=== PATIENT | female | born 1945 | race Caucasian/White ===

== ENCOUNTER → 2018-02-18 | Outpatient (CLI) | payer MEDICARE ==
[~2018-02-18] MED LIST: AMLO2.5T2 PO; CITA10TA8 PO; LORA0.5T PO; OXYB5TAB33 PO; SALM50DI IH
--- NOTE | 2018-02-18 18:52 | RAD ---
NUCLEAR MEDICINE VENTILATION PERFUSION SCAN History: Dyspnea x2 weeks, progressively getting worse. Comparison: Two-view chest, earlier same day. Technique: Patient is initially ventilated with 33 mCi of xenon-133 gas. Anterior posterior initial breath-hold, equilibrium, and washout phase images of the lungs acquired.. Perfusion portion performed after intravenous administration of 6.3 mCi Technetium 99m MAA. Multiple projection planar images of the lungs were obtained. Findings: Ventilation images demonstrate moderate heterogeneous distribution of tracer. There is patchy retention of tracer in the bilateral lungs on washout phase images compatible with mild air trapping. Perfusion images demonstrate no mismatched segmental perfusion defects. There are multiple small matched defects bilaterally. IMPRESSION: Low probability for pulmonary embolus. Electronically signed by: Bro Mckeon MD (02/18/2018 6:49 PM) [id number]
== END | disposition home or self-care (01) ==
LOC: NM 17:41
PROVIDERS: ATTEND Family Medicine
DX: R06.00 Dyspnea, unspecified (principal)
CPT/HCPCS: 78582; 96374; A9540; A9558